=== PATIENT | male | born 1995 | race African-American/Black ===

== ENCOUNTER 2020-12-17 10:49 | Emergency (ER) | payer MEDICAID ==
[~2020-12-17] VITALS: Ht 172.7 cm; Wt 70.4 kg
[2020-12-17 10:58] VITALS: BP 114/85
== END 2020-12-17 12:00 | disposition home or self-care (01) ==
LOC: ER 10:50
DX: S93.402A Sprain of unspecified ligament of left ankle, initial encounter (principal); M25.571 Pain in right ankle and joints of right foot; X50.1XXA Overexertion from prolonged static or awkward postures, initial encounter; Y93.89 Activity, other specified; Y92.89 Other specified places as the place of occurrence of the external cause; Y99.8 Other external cause status
CPT/HCPCS: 29515; 73610; 99283